=== PATIENT | female | born 1985 | race Asian ===

== ENCOUNTER 2017-11-08 09:31 | Inpatient (IN) | payer SELFPAY ==
[~2017-11-08] VITALS: Ht 157.5 cm; Wt 73.5 kg
[2017-11-08 09:40] VITALS: BP 120/79
[2017-11-08] MEDS ORDERED: OXYTOCIN 20 UNITS in LACTATED RINGERS 1,000 ML IV SCH (10:11)
[2017-11-08] MEDS ORDERED: OXYTOCIN 10 UNITS/ML VIAL IM SCH (10:15)
[2017-11-08] MEDS ORDERED: NALBUPHINE 10 MG/ML AMP IVP PRN ×2 (10:15→10:30)
[2017-11-08] MEDS ORDERED: PROMETHAZINE 25 MG/ML VIAL IVP ONE (10:15)
[2017-11-08] MEDS ORDERED: PROMETHAZINE 25 MG/ML VIAL IVP PRN (10:25)
[2017-11-08] MEDS: LACTATED RINGERS 1,000 ML IV SCH ×3 (10:41→17:25)
[2017-11-08 11:05] LABS: BASOPHILS # (AUTO) 0.2 K/uL (0.00-0.22); EOSINOPHILS # (AUTO) 0.1 K/uL (0-0.4); EOSINOPHILS % (AUTO) 0.8 % (0.0-4.0); HEMATOCRIT 36.7 % (36-48); HEMOGLOBIN 12.3 g/dL (12.0-16.0); LYMPHOCYTES # (AUTO) 0.8 K/uL (2.5-16.5); LYMPHOCYTES % (AUTO) 10.3 % (20.5-51.1); MEAN CORPUSCULAR HEMOGLOBIN 29 pg (27-31); MEAN CORPUSCULAR HGB CONC 34 g/dL (33-37); MEAN CORPUSCULAR VOLUME 87 fL (80-94); MONOCYTES # (AUTO) 0.8 K/uL (0.8-1.0); NEUTROPHILS # (AUTO) 5.8 K/uL (1.8-7.7); NEUTROPHILS % (AUTO) 75.9 % (42.2-75.2); PLATELET COUNT (AUTO) 198 K/uL (140-450); RED BLOOD CELL COUNT(AUTO) 4.24 MIL/uL (4.20-5.40); RED CELL DISTRIBUTION WIDTH 13.5 % (11.6-13.7); WHITE BLOOD COUNT (AUTO) 7.7 K/uL (4.8-10.8)
[2017-11-08] MEDS ORDERED: OXYTOCIN 20 UNITS/LR PREMIX 0 ML IV ONE (13:02)
[2017-11-08] MEDS: AMPICILLIN 2,000 MG in NACL 0.9% 100 ML IV SCH ×2 (13:44→18:12)
[2017-11-08] MEDS ORDERED: AMPICILLIN 2,000 MG VIAL ONE ×2 (13:53→18:20)
[2017-11-08] MEDS ORDERED: NALBUPHINE HYDROCHLORIDE 10 MG/ML VIAL ONE (16:23)
[2017-11-08] MEDS ORDERED: PROMETHAZINE 25 MG/ML VIAL ONE (16:24)
[2017-11-08] MEDS ORDERED: ROPIVACAINE 0.2%/NS PREMIX 250 ML EPI ONE (16:47)
[2017-11-08] MEDS ORDERED: OXYTOCIN 10 UNITS/ML VIAL ONE (18:31)
[2017-11-08 18:39] LABS: APPEARANCE,URINE CLEAR (CLEAR); BILIRUBIN,URINE NEGATIVE (NEGATIVE); BLOOD, URINE TRACE-I (NEGATIVE); LEUKOCYTE ESTERASE ,URINE NEGATIVE (NEGATIVE); NITRITE, URINE NEGATIVE (NEGATIVE); PH,URINE 6.5 (5.0-9.0); UGLUCOSE NEGATIVE (NEGATIVE)
[2017-11-08 18:59] LABS: COLOR,URINE STRAW (YELLOW)
[2017-11-08 19:08] LABS: RBC,URINE 0-5 (RARE) /HPF (0-5); WBC,URINE NONE SEEN /HPF (0-5)
[2017-11-08] MEDS ORDERED: oxyCODONE/APAP 5/325 MG 1 TAB TAB PO PRN (19:15)
[2017-11-08] MEDS ORDERED: IBUPROFEN 800 MG TAB PO PRN (19:15)
[2017-11-08] MEDS ORDERED: MEASLES, MUMPS, AND RUBELLA 1 VIAL SQVAC PRN (19:15)
[2017-11-08] MEDS ORDERED: OXYTOCIN 10 UNITS/ML VIAL IM PRN (19:15)
[2017-11-08] MEDS ORDERED: BENZOCAINE/MENTHOL 20%-0.5% 60 GM CAN TP PRN (19:15)
[2017-11-08] MEDS ORDERED: HYDROcodone/APAP 5/325 MG 1 TAB TAB PO PRN (19:15)
[2017-11-08] MEDS ORDERED: METHYLERGONOVINE 0.2 MG/ML AMP IM PRN (19:15)
[2017-11-08] MEDS ORDERED: TEMAZEPAM 15 MG CAP PO PRN (19:15)
[2017-11-08] MEDS ORDERED: DOCUSATE SOD/SENNA 50/8.6 MG 1 TAB PO SCH (21:00)
[2017-11-08] MEDS ORDERED: INFLUENZA VIRUS VACCINE QUAD 0.5 ML SYR IMVAC SCH (22:00)
--- NOTE | 2017-11-09 06:44 | NUR ---
PATIENT HAS BEEN SCREENED AND CATEGORIZED LOW NUTRITION RISK. PATIENT WILL BE SEEN WITHIN 7 DAYS OF ADMISSION. 11/15/17 DELROY VASQUEZ MS, RDN
[2017-11-09 07:01] LABS: HEMATOCRIT 34.7 % (36-48); HEMOGLOBIN 11.9 g/dL (12.0-16.0)
[2017-11-09] MEDS ORDERED: INFLUENZA VIRUS VACCINE QUAD 0.5 ML SYR IMVAC SCH (08:40)
[2017-11-10] MEDS ORDERED: IBUP-2218 PO (08:23)
== END 2017-11-10 15:20 | disposition home or self-care (01) | DRG 775 ==
LOC: MLD 09:31 → MFCC 22:00 → EDSTATUS 11-13 11:59
PROVIDERS: ADMIT Obstetrics & Gynecology; ATTEND Obstetrics & Gynecology
PROC: 10E0XZZ Delivery of Products of Conception, External Approach (ICD-10-PCS; principal; 2017-11-08)
PROC: 00HU33Z Insertion of Infusion Device into Spinal Canal, Percutaneous Approach (ICD-10-PCS; 2017-11-08)
PROC: 3E0R3BZ Introduction of Anesthetic Agent into Spinal Canal, Percutaneous Approach (ICD-10-PCS; 2017-11-08)
DX: O80 Encounter for full-term uncomplicated delivery (principal); Z37.0 Single live birth; Z3A.39 39 weeks gestation of pregnancy
CPT/HCPCS: 36415; 51702; 59409; 81001; 85018; 85025; 86592; 86886; 86900; 86901; 90658; 90715; J0290; J2300; J2550; J2590; J2795; J7120